=== PATIENT | female | born 1960 | race Caucasian/White ===

== ENCOUNTER → 2020-04-29 | Outpatient (CLI) | payer BC | LOC: RAD 07:40 | DX: G45.9 Transient cerebral ischemic attack, unspecified (principal); H53.40 Unspecified visual field defects ==

== ENCOUNTER → 2020-05-03 | Outpatient (CLI) | payer BC | LOC: RAD 08:54 | DX: I65.23 Occlusion and stenosis of bilateral carotid arteries (principal) | CPT/HCPCS: Q9967 ==

== ENCOUNTER → 2022-08-11 | Outpatient (CLI) | payer BC ==
[2022-08-11 09:17] LABS: ALBUMIN 4.3 g/dL (3.4-4.8)
[2022-08-11 09:18] LABS: POTASSIUM 4.4 mmol/L (3.5-5.1)
[2022-08-11 09:19] LABS: CALCIUM 9.6 mg/dL (8.3-10.5)
[2022-08-11 09:20] LABS: TOTAL PROTEIN 7.5 g/dL (6.2-8.1)
[2022-08-11 09:22] LABS: TOTAL BILIRUBIN 0.5 mg/dL (0.2-1.2)
== END ==
LOC: LAB 08:51
PROVIDERS: Internal Medicine Interventional Cardiology
DX: I10 Essential (primary) hypertension (principal)